=== PATIENT | male | born 2005 | race Caucasian/White ===

== ENCOUNTER 2025-07-01 11:40 | Emergency (ER) | payer OTHER, SELFPAY ==
[2025-07-01 12:16] VITALS: BP 106/68; PULSE 79; RESP 16; TEMP 36.9; O2SAT 97; BMI 23.3
--- NOTE | 2025-07-01 12:34 | EDNOTE_ITS ---
<Statement entered by Deborah Morley MD - 07/02/25 06:28> As co-signing physician, I was present and available for consult prn. I concur with the plan and care as documented by the midlevel provider. ED Wound/Laceration-RME/HPI General Chief Complaint: Wound/Laceration Stated Complaint: Laceration right hand Time Seen by Provider: 07/01/25 11:56 Arrival date/time: 07/01/25 11:40 RME / HPI RME / HPI narrative: 20-year-old male patient who works in [employer] department, came in for evaluation regarding right hand injury. Patient was working with [employer], got his right hand caught in on a sharp edge of his chainsaw resulting to 1.5 cm gaping laceration to the hand palmar aspect. No active bleeding noted patient is able to bend and extend the finger without any limitation. Incident happened earlier today. Related Data Allergies Allergy/AdvReac Type Severity Reaction Status Date / Time Penicillins Allergy Severe Hives Verified 07/01/25 11:42 Review of Systems Review of Systems Narrative Review of Systems: Review of system reviewed and within normal limits except mentioned in HPI ED Exam Narrative Physical exam: VITAL SIGNS: Reviewed. GENERAL APPEARANCE: Alert and interactive, follows commands, no acute distress, HEAD AND FACE: Non-traumatic. ENT: PERRL, pink conjunctivitis, eyelid no trauma, Mucous membrane moist. NECK: Supple, nontender, no nuchal rigidity. RECTAL: Deferred. GENITAL: Deferred. NEUROLOGICAL: Gross motor function intact sensory function intact, Appropriate for age. MUSCULOSKELETAL: low back nontender, full range of motion. EXTREMITIES: +1.5 cm gaping laceration, right hand palmar aspect slight tenderness, full range of motion of all the fingers . SKIN: Color pink, dry, no rash, no abrasions, no contusions. LYMPHATICS: Deferred. Course Quality Measures none Orders Category Date Time Status Ibuprofen Tab [Motrin Tab] Med 07/01/25 12:33 Discontinued 800 mg PO X1 ONE Lidocaine 1% 20 ml [Xylocaine 1% 20 ML] Med 07/01/25 12:33 Discontinued 20 ml INFL X1 ONE TET,DIP/PERT AC (Adult)-Tdap [Boostrix Adult (Tdap) Med 07/01/25 12:35 Discontinued Vacc] 0.5 ml IMI .ONCE ONE Vital Signs Vital signs: Vital Signs Temperature 98.5 F 07/01/25 12:16 Pulse Rate 79 07/01/25 12:16 Respiratory Rate 16 07/01/25 12:16 Blood Pressure 106/68 07/01/25 12:16 Pulse Oximetry (%) 97 07/01/25 12:16 Oxygen Delivery Method Room Air 07/01/25 12:16 PROCEDURES: Laceration Laceration 1: Site: hand Side (If applicable): right Size (cm): 1.5 Description: linear and clean Depth: simple, single layer Local Anesthetic: lidocaine 1% Amount of anesthesia used (mL): 3 Pre-repair: wound explored, irrigated extensively and deep structures intact Skin layer closed with: nylon Suture size (cm): 4-0 Number of sutures: 3 Technique: simple, interrupted Wound / Laceration MDM Narrative MDM Narrative:: 20-year-old male patient who works in [employer] department, came in for evaluation regarding right hand injury. Patient was working with [employer], got his right hand caught in on a sharp edge of his chainsaw resulting to 1.5 cm gaping laceration to the hand palmar aspect. No active bleeding noted patient is able to bend and extend the finger without any limitation. Incident happened earlier today. Repair and suturing was done by me see procedure notes patient tolerated procedure well Patient received Boostrix, and Motrin Imaging is not needed at this time Patient data External records reviewed:: None Clinical information provided by:: patient Social determinants that could affect healthcare access:: none Patient has the following chronic illnesses:: None How is presenting disease/condition affected by chronic disease/condition?: no chronic disease Evaluation data The following diagnostics were reviewed and interpreted by me:: other (specify) (None) Lab and/or radiology exams considered but not ordered:: None Interpretation Summary: None Medications / Prescriptions Medications or Prescriptions considered but not ordered:: None Medication administrations:: Medication Administration History Discontinued Medications Diphtheria/Tetanus/Acell Pertussis (Diphth,Pertuss(Acell),Tet Vac 0.5 Ml Syr- Adult) 0.5 ml IMi .ONCE ONE Stop: 07/01/25 12:36 Ibuprofen (Ibuprofen Tab 400 Mg Tablet) 800 mg PO X1 ONE Stop: 07/01/25 12:34 Lidocaine HCl (Lidocaine Hcl 1% 20 Ml Vial) 20 ml INFL X1 ONE Stop: 07/01/25 12:34 Boostrix, Motrin Consultations Consultation(s) initiated? (list below): No Diagnosis Wound Differential Diagnosis: laceration, abrasion and avulsion of skin Most likely diagnosis given after review of the tests above:: Hand laceration Admission Indicated Admission indicated?: not indicated Explain why admission is indicated or not indicated:: Stable Admission Request Was there a request for admission?: No Disposition Plan Disposition Plan: Discharge Discharge Attestation Discharge Attestation: The patient and all family members were given an opportunity to ask questions and understood the discharge instructions. Discharge instructions specifically effects, indications for sooner follow up or return to the emergency department, and the expected course of current diagnosis. Patient condition: Stable Discharge Plan Plan Patient Disposition: HOME (Self Care) Discharge Disposition comment: Stable Problem List Clinical Impression: Hand laceration Patient/Caregiver Discharge Instructions Education Materials: ED Laceration: All Closures Additional Instructions: Thank you for the opportunity for serving you today. You are stable for discharged . You are advised to: Follow-up with your PCP in 1 to 2 days Return to ED for worsening of symptoms Increase oral fluids Take [id number] Tylenol Motrin as needed for pain Daily dressing with bacitracin that you can buy [id number] as needed For removal of sutures in 7 to 10 days Print Language: British Stand Alone Forms: [employer] Award Info., Patient Portal Info Letter SERAFIN/ACACIA Supervising Physician SERAFIN/ACACIA Supervising Physician: MD Peyman
[2025-07-01] MEDS: IBUPROFEN TAB 400 MG TABLET 800 MG PO (12:55)
[2025-07-01] MEDS: LIDOCAINE HCL 1% 20 ML VIAL INFL (12:55)
[2025-07-01] MEDS: DIPHTH,PERTUSS(ACELL),TET VAC 0.5 ML SYR- ADULT IMi (12:56)
== END 2025-07-01 13:52 | disposition home or self-care (01) ==
LOC: SERX 13:10
PROVIDERS: Emergency Provider Emergency Medicine
DX: S61.411A Laceration without foreign body of right hand, initial encounter (principal); Z23 Encounter for immunization; W29.3XXA Contact with powered garden and outdoor hand tools and machinery, initial encounter; Y99.0 Civilian activity done for income or pay
CPT/HCPCS: 12001; 90471; 90715; 99283; J3490; A9270